=== PATIENT | female | born 2000 | race African-American/Black ===

== ENCOUNTER 2021-09-28 21:54 | Day surgery (SDC) | payer MEDICAID, OTHER ==
[2021-09-28 23:15] VITALS: BMI 30.2
[2021-09-29 00:07] LABS: SARS-CoV-2 NAA Rapid Test Not Detected (NotDetected)
[2021-09-29] MEDS ORDERED: Acetaminophen 325 MG TAB PO PRN (00:52)
[2021-09-29 01:37] LABS: Fetal Membranes Rupture No Membranes Rupture (No Rupture)
[2021-09-29] MEDS ORDERED: hydrALAZINE 20 MG/ML VIAL SLOW IVP PRN (02:21)
[2021-09-29] MEDS ORDERED: Lactated Ringer's 1,000 ML IV SCH (02:30)
== END 2021-09-29 02:34 | disposition home health service (06) ==
LOC: CSHLD/OP 21:54
PROVIDERS: ATTEND Family Medicine
DX: O99.891 Other specified diseases and conditions complicating pregnancy (principal); M79.18 Myalgia, other site; R50.9 Fever, unspecified; Z3A.37 37 weeks gestation of pregnancy; Z20.822 Contact with and (suspected) exposure to COVID-19
CPT/HCPCS: 0240U; 84112; 96360; 96361; 99284

== ENCOUNTER 2021-09-30 23:13 | Inpatient (IN) | payer OTHER ==
[2021-10-01 00:03] VITALS: BMI 30.2
[2021-10-01] MEDS ORDERED: hydrALAZINE 20 MG/ML VIAL SLOW IVP PRN ×3 (00:20→06:43)
[2021-10-01] MEDS ORDERED: Misoprostol 200 MCG TAB PR PRN (00:58)
[2021-10-01] MEDS ORDERED: Butorphanol Tartrate 1 MG/ML VIAL SLOW IVP PRN (00:58)
[2021-10-01] MEDS ORDERED: Acetaminophen 500 MG TAB PO PRN (00:58)
[2021-10-01] MEDS ORDERED: Promethazine HCl 25 MG/ML VIAL IM PRN ×3 (00:58→06:43)
[2021-10-01] MEDS ORDERED: Ibuprofen 800 MG TAB PO PRN (00:58)
[2021-10-01] MEDS ORDERED: Ondansetron PF 4 MG/2 ML Vial IVP PRN ×3 (00:58→06:43)
[2021-10-01] MEDS ORDERED: Methylergonovine 0.2 MG/ML VIAL IM PRN (00:58)
[2021-10-01] MEDS ORDERED: Carboprost 250 MCG/ML AMP IM PRN (00:58)
[2021-10-01] MEDS ORDERED: Lidocaine 1% (PF) 30 ML VIAL SC PRN (00:58)
[2021-10-01] MEDS ORDERED: Penicillin G Potassium 5 MILL.UNITS in Sodium Chloride 0.9% 100 ML IVPB SCH (01:00)
[2021-10-01] MEDS ORDERED: Lactated Ringer's 1,000 ML IV SCH (01:00)
[2021-10-01] MEDS ORDERED: NS w/ Oxytocin 30 units 500 ML IVPB SCH (01:00)
[2021-10-01] MEDS ORDERED: NS w/ Oxytocin 30 units 500 ML IV SCH ×3 (01:00→06:43)
[2021-10-01 02:18] LABS: Hemoglobin 12.5 g/dL (12.0-15.5); Mean Corpuscular HGB CONC 31.3 g/dL (32.0-36.0); Mean Corpuscular Hemoglobin 27.5 pg (27.0-33.0); Mean Corpuscular Volume 87.9 fl (81.6-98.3); Mean Platelet Volume 11.3 fl (7.4-10.4); Platelet Count 222 10x3/uL (150-450); RBC Distribution Width 15.3 % (11.5-14.5); Red Blood Cell (RBC) Count 4.55 10x6/uL (3.90-5.03); White Blood Cell (WBC) Count 5.4 10x3/uL (3.5-10.5)
[2021-10-01] MEDS ORDERED: Acetaminophen 325 MG TAB PO PRN (02:34)
[2021-10-01] MEDS ORDERED: Fentanyl 2 mcg/Bup 0.1% Cadd 100 ML ONE (02:34)
[2021-10-01] MEDS ORDERED: ePHEDrine Sulfate 50 MG/10 ML VIAL SLOW IVP PRN (02:34)
[2021-10-01] MEDS ORDERED: diphenhydrAMINE 50 MG/ML VIAL IVP PRN (02:34)
[2021-10-01] MEDS ORDERED: Hydrocerin (Eucerin) Cream 120 gm Jar TOP PRN (02:34)
[2021-10-01] MEDS ORDERED: Naloxone HCl 0.4 mg/ml Vial IVP PRN ×2 (02:34)
[2021-10-01] MEDS ORDERED: Lactated Ringer's 500 ML IV PRN (02:34)
[2021-10-01 02:40] LABS: Hep B Surf Ag Non-Reactive S/CO (NonReactive)
[2021-10-01 02:41] LABS: Syphilis Antibody Nonreactive (Nonreactive); Syphilis Antibody Index 0.04 S/CO (<1.00 Non-Reactive)
[2021-10-01] MEDS ORDERED: Communication Order-Pharmacy FS SCH (02:45)
[2021-10-01] MEDS ORDERED: Fentanyl 2 mcg/Bupivacaine 0.1% Cassette 100 ML EPIDURAL SCH (02:45)
[2021-10-01 02:47] LABS: HBSAg Index 0.18 S/CO (0-0.99)
[2021-10-01] MEDS ORDERED: Bupivacaine 0.25% HCL 30 ML VIAL ONE (06:00)
[2021-10-01] MEDS ORDERED: diphenhydrAMINE 25 MG CAP PO PRN (06:43)
[2021-10-01] MEDS ORDERED: Milk Of Magnesia 30 ML UDCUP PO PRN (06:43)
[2021-10-01] MEDS ORDERED: Lanolin Ointment 7 GM TUBE TOP PRN (06:43)
[2021-10-01] MEDS: Penicillin G 2.5 MILL.units 2.5 MILL.UNITS in Premix Bag 1 BAG IVPB SCH (06:43)
[2021-10-01] MEDS ORDERED: Benzocaine-Menthol 82.5 ML CAN TOP PRN (06:43)
[2021-10-01] MEDS ORDERED: Bisacodyl 10 MG SUPP PR PRN (06:43)
[2021-10-01] MEDS ORDERED: Boostrix 0.5 ML (Tdap) VIAL IM ONE (06:43)
[2021-10-01] MEDS ORDERED: Ibuprofen 800 MG TAB PO SCH (07:15)
[2021-10-01] MEDS: Docusate Calcium (SURFAK) 240 MG CAP PO SCH ×2 (08:04→21:42)
[2021-10-01] MEDS: Prenatal Vitamin 1 TAB PO SCH (08:04)
[2021-10-01] MEDS: Ferrous Sulfate 325 MG TAB PO SCH ×2 (08:05→17:17)
[2021-10-01] MEDS: Ibuprofen 800 MG TAB PO SCH ×2 (15:18→21:42)
[2021-10-01 15:35] LABS: SARS-CoV-2 PCR by NAA DETECTED (NotDetected)
[2021-10-02] MEDS: Docusate Calcium (SURFAK) 240 MG CAP PO SCH ×2 (08:00→22:06)
[2021-10-02] MEDS: Prenatal Vitamin 1 TAB PO SCH (08:00)
[2021-10-02] MEDS: Ferrous Sulfate 325 MG TAB PO SCH ×2 (08:01→17:24)
[2021-10-02] MEDS: Ibuprofen 800 MG TAB PO SCH ×3 (08:01→22:06)
[2021-10-02] MEDS: HYDROcodone/Acetaminophen 5/325 mg Tablet PO PRN ×2 (10:46→16:29)
[2021-10-03] MEDS: Ibuprofen 800 MG TAB PO SCH (05:18)
[2021-10-03 09:41] VITALS: BP 127/78; TEMP 98
== END 2021-10-03 11:00 | disposition home or self-care (01) | DRG 807 ==
LOC: CSHLD/OP 23:13 → CSHLD 10-01 02:22 → CSHPP 10-01 06:30 → UNDODISIN 10-02 16:35
PROVIDERS: ADMIT Family Medicine; ATTEND Family Medicine
PROC: 10E0XZZ Delivery of Products of Conception, External Approach (ICD-10-PCS; principal; 2021-10-01)
PROC: 0UQMXZZ Repair Vulva, External Approach (ICD-10-PCS; 2021-10-01)
PROC: 8E0ZXY6 Isolation (ICD-10-PCS; 2021-10-01)
DX: O99.824 Streptococcus B carrier state complicating childbirth (principal); Z37.0 Single live birth; Z3A.37 37 weeks gestation of pregnancy; O71.82 Other specified trauma to perineum and vulva
CPT/HCPCS: 36415; 51702; 85027; 86780; 86850; 86900; 86901; 87340; 99285; J2405; J2540; J3490; S0020; U0003; U0005

== ENCOUNTER 2023-05-31 15:57 | Day surgery (SDC) | payer OTHER ==
[2023-05-31 16:25] VITALS: BMI 32.3
== END 2023-05-31 18:12 | disposition home or self-care (01) ==
LOC: CSHLD/OP 15:57
PROVIDERS: ATTEND Family Medicine
DX: O47.1 False labor at or after 37 completed weeks of gestation (principal); O99.820 Streptococcus B carrier state complicating pregnancy; Z3A.40 40 weeks gestation of pregnancy; Z79.899 Other long term (current) drug therapy
CPT/HCPCS: 99282

== ENCOUNTER 2023-06-04 05:30 | Inpatient (IN) | payer OTHER ==
[2023-06-05 02:00] VITALS: BMI 33.4
[2023-06-05 02:09] LABS: Hematocrit 34.6 % (34.9-44.5); Hemoglobin 11.4 g/dL (12.0-15.5); Mean Corpuscular HGB CONC 32.9 g/dL (32.0-36.0); Mean Corpuscular Volume 81.8 fl (81.6-98.3); Mean Platelet Volume 11.3 fl (7.4-10.4); Platelet Count 236 10x3/uL (150-450); RBC Distribution Width 15.9 % (11.5-14.5); Red Blood Cell (RBC) Count 4.23 10x6/uL (3.90-5.03); White Blood Cell (WBC) Count 7.5 10x3/uL (3.5-10.5)
[2023-06-05 02:38] LABS: HBSAg Index 0.16 S/CO (0-0.99); Hep B Surf Ag - L&D Non-Reactive S/CO (NonReactive)
[2023-06-05 02:43] LABS: Syphilis Antibody Nonreactive (Nonreactive); Syphilis Antibody Index 0.04 S/CO (<1.00 Non-Reactive)
[2023-06-05] MEDS ORDERED: fentaNYL 50 mcg/mL 1 mL Vial SLOW IVP PRN (04:26)
[2023-06-05] MEDS ORDERED: Tranexamic Acid 1,000 MG/10 ML VIAL IVP PRN (04:27)
[2023-06-05] MEDS ORDERED: NS w/ Oxytocin 30 units 500 ML IV SCH (04:30)
[2023-06-05] MEDS ORDERED: Acetaminophen 500 MG TAB PO PRN (04:30)
[2023-06-05] MEDS ORDERED: Misoprostol 200 MCG TAB RC PRN (04:30)
[2023-06-05] MEDS ORDERED: Penicillin G Potassium 5 MILL.UNITS in Sodium Chloride 0.9% 100 ML IVPB SCH (04:30)
[2023-06-05] MEDS ORDERED: Methylergonovine 0.2 MG/ML VIAL IM PRN (04:30)
[2023-06-05] MEDS ORDERED: Lidocaine 1% (PF) 30 ML VIAL SC PRN (04:30)
[2023-06-05] MEDS ORDERED: Carboprost 250 MCG/ML AMP IM PRN (04:30)
[2023-06-05] MEDS ORDERED: NS w/ Oxytocin 30 units 500 ML IVPB SCH (04:30)
[2023-06-05] MEDS ORDERED: hydrALAZINE 20 MG/ML VIAL SLOW IVP PRN ×2 (04:30→12:27)
[2023-06-05] MEDS ORDERED: Lactated Ringer's 1,000 ML IV SCH ×2 (04:30)
[2023-06-05] MEDS ORDERED: Diphenoxylate HCl/Atropine Tablet PO PRN ×2 (04:30)
[2023-06-05] MEDS ORDERED: Ondansetron PF 4 MG/2 ML Vial IVP PRN ×3 (04:30→12:27)
[2023-06-05] MEDS ORDERED: Promethazine HCl 25 MG/ML VIAL IM PRN ×3 (04:30→12:27)
[2023-06-05] MEDS ORDERED: fentaNYL/Ropivacaine Epidural 100 ML ONE (05:18)
[2023-06-05] MEDS ORDERED: ePHEDrine Sulfate 50 MG/10 ML VIAL SLOW IVP PRN (06:01)
[2023-06-05] MEDS ORDERED: Lactated Ringer's 500 ML IV PRN (06:01)
[2023-06-05] MEDS ORDERED: diphenhydrAMINE 50 MG/ML VIAL IVP PRN (06:01)
[2023-06-05] MEDS ORDERED: Acetaminophen 325 MG TAB PO PRN (06:01)
[2023-06-05] MEDS ORDERED: Moisturizing Cream (Eucerin) 113 GM JAR TOP PRN (06:01)
[2023-06-05] MEDS ORDERED: Naloxone HCl 0.4 mg/ml Vial IVP PRN ×2 (06:01)
[2023-06-05] MEDS ORDERED: fentaNYL 2 mcg/Ropivacaine 0.2% Epidural 100 ML CADD EPIDURAL SCH (06:15)
[2023-06-05] MEDS ORDERED: Communication Order-Pharmacy FS SCH (06:15)
[2023-06-05] MEDS ORDERED: Penicillin G 2.5 MILL.units 2.5 MILL.UNITS in Premix Bag 1 BAG IVPB SCH (09:00)
[2023-06-05] MEDS ORDERED: HYDROcodone/Acetaminophen 5/325 mg Tablet PO PRN (12:27)
[2023-06-05] MEDS ORDERED: Milk Of Magnesia 30 ML UDCUP PO PRN (12:27)
[2023-06-05] MEDS ORDERED: Bisacodyl 10 MG SUPP PR PRN (12:27)
[2023-06-05] MEDS ORDERED: diphenhydrAMINE 25 MG CAP PO PRN (12:27)
[2023-06-05] MEDS ORDERED: Boostrix 0.5 ML (Tdap) VIAL (>/=7 yrs of age) IM ONE (12:27)
[2023-06-05] MEDS ORDERED: Benzocaine-Menthol 82.5 ML CAN TOP PRN (12:27)
[2023-06-05] MEDS: Ibuprofen 800 MG TAB PO SCH ×2 (12:34→22:00)
[2023-06-05] MEDS ORDERED: Bupivacaine 0.25% HCL 30 ML VIAL ONE (14:00)
[2023-06-05] MEDS: Ferrous Sulfate 325 MG TAB PO SCH (18:37)
[2023-06-05] MEDS: HYDROcodone/Acetaminophen 5/325 mg Tablet PO PRN (19:50)
[2023-06-05] MEDS: Docusate 100 MG CAP PO SCH (19:50)
[2023-06-06] MEDS: HYDROcodone/Acetaminophen 5/325 mg Tablet PO PRN ×3 (00:12→23:09)
[2023-06-06] MEDS: Ibuprofen 800 MG TAB PO SCH ×3 (05:03→21:56)
[2023-06-06] MEDS: Prenatal Vitamin 1 TAB PO SCH (09:35)
[2023-06-06] MEDS: Docusate 100 MG CAP PO SCH ×2 (09:35→20:35)
[2023-06-06] MEDS: Ferrous Sulfate 325 MG TAB PO SCH ×2 (10:59→21:53)
[2023-06-07] MEDS: Ibuprofen 800 MG TAB PO SCH ×2 (05:07→13:34)
[2023-06-07] MEDS: Ferrous Sulfate 325 MG TAB PO SCH (09:07)
[2023-06-07] MEDS: Docusate 100 MG CAP PO SCH (09:08)
[2023-06-07] MEDS: Prenatal Vitamin 1 TAB PO SCH (09:08)
[2023-06-07] MEDS ORDERED: Labetalol HCl 100 MG TAB PO SCH ×2 (11:00→21:00)
[2023-06-07 13:25] VITALS: BP 146/78; TEMP 97.6
== END 2023-06-07 14:15 | disposition home or self-care (01) | DRG 807 ==
LOC: CSHLD 23:35 → UNDOADMIN 23:35 → CSHLD 06-05 02:00 → CSHPP 06-05 15:15
PROVIDERS: ADMIT Family Medicine; ATTEND Family Medicine
PROC: 10E0XZZ Delivery of Products of Conception, External Approach (ICD-10-PCS; principal; 2023-06-05)
PROC: 3E033VJ Introduction of Other Hormone into Peripheral Vein, Percutaneous Approach (ICD-10-PCS; 2023-06-05)
PROC: 0UQMXZZ Repair Vulva, External Approach (ICD-10-PCS; 2023-06-05)
DX: O42.02 Full-term premature rupture of membranes, onset of labor within 24 hours of rupture (principal); Z37.0 Single live birth; O48.0 Post-term pregnancy; O99.824 Streptococcus B carrier state complicating childbirth; Z3A.40 40 weeks gestation of pregnancy; Z79.899 Other long term (current) drug therapy; O71.82 Other specified trauma to perineum and vulva
CPT/HCPCS: 51702; 85027; 86780; 86850; 86870; 86900; 86901; 87340; J2540; J2590; J3490; J7120; S0020